=== PATIENT | female | born 1955 | race Caucasian/White ===

== ENCOUNTER → 2024-02-01 13:04 | Outpatient (REF) | payer MEDICARE, OTHER, SELFPAY ==
[2024-02-01 14:10] LABS: Hematocrit 41.8 % (37.0-47.0); Hemoglobin 13.4 g/dL (12.0-16.0); Mean Corp Hgb Conc. 32.1 g/dL (33.0-37.0); Mean Corpuscular Hgb 31.4 pg (27.0-31.0); Mean Corpuscular Volume 97.9 fL (81.0-99.0); Mean Platelet Volume 9.3 fL (7.4-10.4); Platelet Count 347 10^3/uL (130-400); Red Blood Cell Count 4.27 10^6/uL (4.20-5.40); White Blood Cell Count 6.7 10^3/uL (4.8-10.8)
== END ==
LOC: SDSPAT 13:04
PROVIDERS: ATTENDING PHYSICIAN Specialist; FAMILY PHYSICIAN Internal Medicine
DX: Z01.818 Encounter for other preprocedural examination (principal)
CPT/HCPCS: 36415; 85027; 93005

== ENCOUNTER 2024-02-05 06:14 | Day surgery (SDC) | payer MEDICARE, OTHER, SELFPAY ==
[2024-02-01 13:24] VITALS: BMI 30.9
[2024-02-05] VITALS (11 sets, daily range): BP systolic 88–190; BP diastolic 54–102; BMI 30.2
[2024-02-05] MEDS: CELEBREX 200 MG PO (08:16)
[2024-02-05] MEDS: TYLENOL 1000 MG PO (08:16)
[2024-02-05] MEDS: NORMOSOL-R 1000 IV (08:34)
[2024-02-05] MEDS: DILAUDID 0.25 MG IV (10:39)
== END 2024-02-05 11:45 | disposition short-term general hospital (02) ==
LOC: SDS 06:14
PROVIDERS: ATTENDING PHYSICIAN Specialist; FAMILY PHYSICIAN Internal Medicine
DX: S83.242A Other tear of medial meniscus, current injury, left knee, initial encounter (principal); S83.282A Other tear of lateral meniscus, current injury, left knee, initial encounter; X58.XXXA Exposure to other specified factors, initial encounter
CPT/HCPCS: 29880

== ENCOUNTER 2025-04-02 08:14 | Emergency (ER) | payer MEDICARE, OTHER, SELFPAY ==
[2025-04-02 08:16] VITALS: BP 199/120
[2025-04-02 08:34] VITALS: BP 190/117
--- NOTE | 2025-04-02 09:07 | ED.GENMED ---
History of Present Illness
General
Chief Complaint: Cold/Flu/URI Symptoms
Source: patient
Exam Limitations: none
Time Seen by Provider: 04/02/25 08:24
Nursing documentation reviewed up to this point in time: agreed with
History of Present Illness
History of Present Illness:
69-year-old female with a history of hypertension presents for 3-1/2 weeks of chest congestion, frequent cough, trouble sleeping and shortness of breath. Patient says her symptoms started after
Being on vacation, she was on a boat in [facility]. Patient says that her got sick first and she got sick the following day with upper respiratory symptoms. She had a fever the first 2 days and that resolved. She had a cough. And is
sore throat. She called her doctor on 5�18 and was told it was probably viral. She did not get seen at that time. Patient tried falc-rxb-[id number] remedies for several days and ended up being seen sometime around 5�24 where she was given a Z-Gildardo
and cough medication. Patient says she felt better on the 3rd or 4th day of the Z-Gildardo but then symptoms returned pretty much the next day. She says she has been fatigued, mildly winded, with a burning in her chest that is only with cough. She
says she is mostly coughing at night. She has not tried her albuterol other than 1 time throughout this 3 weeks and it did not help. She has had asthmatic bronchitis before
On 6�4 patient went to urgent care where she had a chest x-ray which was read as negative. She was started on prednisone 20 mg and took the last dose today, it was once a day dosing for 5 days. Patient says she feels no improvement. She is aware
her blood pressure is quite high. This happens to her all the time when she goes to the doctor but usually not this high. In urgent care it was 160/90 last week.
She is not having any chest pain
Past History
Past History
ED Past Medical History: HTN
ED Past Surgical History: Orthopedic
Social History
Tobacco: Former smoker
Review of Systems
Review of Systems
Allergies reviewed?: Yes
All Other Systems: Not applicable
Phy Exam
Physical Exam
Physical Exam:
GENERAL: Alert , in no apparent distress
EYE: pupils equal and reactive
NECK: Supple
ENT: o/p clr, mmm.
R TM slightly pink, clear fluid behind
CARDIAC: Regular rate and rhythm .
LUNGS: spastic cough, wheezing that clears with cough; no resp distress; no rales
ABDOMEN: Soft, without focal tenderness, no r/g, no cvat, normal bowel sounds
NEUROLOGICAL: Alert and oriented, no focal neuro deficits
SKIN: Warm and dry, skin intact.
MUSCULOSKELETAL: No edema, well perfused. neg ammie's sign
PSYCH: Normal and appropriate interaction.
Course
Orders/Labs/Results
Orders:
Orders
04/02/25 09:04
Electrocardiogram (*1) Urgent
Reason for Study: Shortness of Breath
CT Chest PE Study Urgent
Comment:
Reason For Exam: sob, congestion
EKG- Treatment ONCE
Albuterol Nebs [Ventolin Nebules] 2.5 mg INH R NOW STA
Dexamethasone Sod Phosphate [Decadron] 10 mg IV NOW STA
04/02/25 09:18
Complete Blood Count/With Diff Urgent
Comprehensive Metabolic Panel Urgent
NT-proBNP Urgent
Troponin I Urgent
Abnormal Lab Results
04/02/25
09:18
MCH 31.5 H pg
(27.0-31.0)
Lymphocytes % 16.5 L %
(20.5-51.1)
Chloride 111 H mmol/L
(98-107)
Glucose 105 H mg/dl
(70-99)
04/02/25 09:18
04/02/25 09:18
Vital Signs
Initial and Last Documented VS:
Initial Vital Signs
Temp Pulse Resp BP Pulse Ox
36.8 C 103 16 199/120 99
04/02/25 08:16 04/02/25 08:16 04/02/25 08:16 04/02/25 08:16 04/02/25 08:16
Last Documented Vital Signs
Temp Pulse Resp BP Pulse Ox
36.8 C 86 18 164/95 98
04/02/25 08:16 04/02/25 09:44 04/02/25 09:44 04/02/25 11:14 04/02/25 10:29
MDM/Problems Addressed
Differential Diagnosis Includes:
asthmatic bronchitis, pneumoinia, Pe, CHF
MDM/Problems Addressed:
69 y/o F
h/o htn
here with URI sxs x 3 weeks
spastic cough, congestion in her chest
not relieved with low dose steroids x 5 days, zpak, cough meds
hasn't tried albuterol which she has at home
today woke up with R ear fullness and congestion today
w/u here reassuring
ct pe neg
will initiate steroid taper, pt was on low dose
suspect asthatic bronchitis
neb machine at home, use q6 hours
and initiate augmentin
bp improved without treatment
*Critical Care Note
Total Time (30-74mins, 75-104mins- exclusive of procedures): Not Applicable
ED Attending Note
-
Portions of this chart may have been created with voice recognition software.� Occasional wrong word or��sound alike� substitutions may have occurred due to the inherent limitations of voice recognition software.
Discharge Plan
Departure
Patient Disposition: Home (Routine Discharge)
Date of Disposition: 04/02/25
Time of Disposition: 10:52
Patient with high blood pressure during this ER visit?: No
Condition: Fair
Covid-19: Not Applicable
Discharge Problem:
Acute asthmatic bronchitis
Instructions: Acute Bronchitis, Adult (DC), Sinusitis in adults - ED discharge instructions, BLOOD PRESSURE
Prescriptions:
New
amoxicillin-pot clavulanate 875-125 mg tablet
1 tab PO BID Qty: 20 0RF
prednisone 10 mg Tablet
See Rx Instructions .ROUTE .COMPLEX Qty: 30 0RF
Rx Instructions:
Take By Mouth:
50 mg daily x2 days, 40 mg daily x2 days,
30 mg daily x2 days, 20 mg daily x2 days, 10 mg daily x 2 days
albuterol sulfate 2.5 mg /3 mL (0.083 %) solution for nebulization
2.5 mg inhalation QID PRN (Reason: bronchospasm) Qty: 90 0RF
No Action
metoprolol succinate 50 mg Tablet Extended Release 24 Hr
50 mg PO DAILY
valsartan 320 mg tablet
320 mg PO DAILY Qty: 30 1RF
hydrochlorothiazide 25 mg tablet
25 mg PO DAILY Qty: 30 1RF
cholecalciferol (vitamin D3) [Vitamin D3] 25 mcg (1,000 unit) Tablet
25 mcg PO DAILY
levobunolol 0.5 % Drops
1 drp OPHTHALMIC (EYE) DAILY
prednisone 20 mg Tablet
20 mg PO DAILY
Referrals:
Divya Burns MD [Family Provider, Internal Medicine]
Activity Restrictions/Additional Instructions:
Your blood pressure was elevated but did come down to 160/90. You had no signs of a blood clot in your lungs or any pneumonia. This is likely asthmatic bronchitis and an early sinus infection. Try Augmentin twice a day for 10 days. You can use a
probiotic when you are on this medicine. Starting tomorrow once a day in the morning do prednisone as directed, you are going to start with 50 mg which is 5 tablets once a day for 2 days, then 40 mg once a day for 2 days, then 30 mg once a day for
2 days, then 20 mg once a day for 2 days, then 10 mg once a day for 2 days. Continue the albuterol every 4-6 hours as needed for your cough. Follow-up with your family doctor, you may need to see an asthma or home mortgage disclosure act specialist
Interventions
Interventions:
*Risk Screen - Suicide Last Done: 04/02/25 08:16
*General Assessment Last Done: 04/02/25 08:42
*Neglect/Abuse Screening Last Done: 04/02/25 08:16
*ED- Fall Risk Assessment Last Done: 04/02/25 08:42
*ED COVID-19 Vaccine History Last Done: 04/02/25 08:42
*Nursing Disposition Last Done: 04/02/25 11:20
ED- Pulmonary Assessment Last Done: 04/02/25 08:42
Discharge Date and Time
Discharge Date/Time: 04/02/25 11:36
Print Language: ARABIC
[2025-04-02] MEDS: DECADRON 10 MG IV (09:20)
[2025-04-02] MEDS: VENTOLIN NEBULES 2.5 MG INH (09:20)
[2025-04-02 09:32] LABS: % Basophils 1.1 % (0-2); % Immature Granulocytes 0.3 % (0-0.5); % Lymphocytes 16.5 % (20.5-51.1); % Monocytes 7.2 % (1.7-9.3); % Neutrophils 72.9 % (42.2-75.2); Absolute Basophils 0.1 10^3/uL (0-0.2); Absolute Eosinophils 0.2 10^3/uL (0-0.7); Absolute Lymphocytes 1.3 10^3/uL (1.2-3.4); Absolute Monocytes 0.6 10^3/uL (0.1-0.6); Absolute Neutrophils 5.8 10^3/uL (1.4-6.5); Hematocrit 40.3 % (37.0-47.0); Hemoglobin 13.5 g/dL (12.0-16.0); Mean Corp Hgb Conc. 33.5 g/dL (33.0-37.0); Mean Corpuscular Hgb 31.5 pg (27.0-31.0); Mean Corpuscular Volume 93.9 fL (81.0-99.0); Mean Platelet Volume 9.1 fL (7.4-10.4); Nucleated Red Blood Cells % 0 %; Platelet Count 384 10^3/uL (130-400); Red Blood Cell Count 4.29 10^6/uL (4.20-5.40); Red Cell Dist. Width 13.2 % (11.5-14.5); White Blood Cell Count 7.9 10^3/uL (4.8-10.8)
[2025-04-02 09:41] VITALS: BP 183/108
[2025-04-02 09:44] VITALS: BP 183/108
[2025-04-02 09:50] LABS: ALT (SGPT) 18 U/L (0-35); AST (SGOT) 20 U/L (14-36); Albumin 4.5 g/dl (3.5-5.0); Alkaline Phosphatase 63 U/L (38-126); Blood Urea Nitrogen 14 mg/dl (7-17); Calcium 10.1 mg/dl (8.4-10.2); Carbon Dioxide 26 mmol/L (22-30); Chloride 111 mmol/L (98-107); Glucose 105 mg/dl (70-99); Potassium 4.2 mmol/L (3.5-5.1); Sodium 145 mmol/L (135-145); Total Bilirubin 0.4 mg/dl (0.2-1.3); Total Protein 7.7 g/dl (6.3-8.2); eGFR > 60.00
[2025-04-02 10:03] LABS: NT-proBNP 548 pg/ml; Troponin I < 0.012 ng/ml
[2025-04-02 10:28] VITALS: BP 166/97
[2025-04-02 11:14] VITALS: BP 164/95
== END 2025-04-02 11:36 | disposition home or self-care (01) ==
LOC: EMR 08:14
PROVIDERS: Physician Assistant; EMERGENCY PHYSICIAN Emergency Medicine; FAMILY PHYSICIAN Internal Medicine
DX: J45.901 Unspecified asthma with (acute) exacerbation (principal); R53.83 Other fatigue; I10 Essential (primary) hypertension; F41.9 Anxiety disorder, unspecified; Z86.19 Personal history of other infectious and parasitic diseases; Z87.891 Personal history of nicotine dependence
CPT/HCPCS: 99284; 94640; 96374; 71275; 80053; 83880; 84484; 85025; 93005; Q9967